=== PATIENT | female | born 1950 | race Caucasian/White ===

== ENCOUNTER 2023-08-05 12:58 | Inpatient (IN) | payer MEDICARE, SELFPAY ==
[2023-08-05] VITALS (10 sets, daily range): BP systolic 116–154; BP diastolic 59–78; BMI 20.5; BMI 20.8
[2023-08-05 09:28] LABS: % Basophils 0.4 % (0-2); % Eosinophils 0.8 % (0-6); % Immature Granulocytes 0.3 % (0-0.5); % Monocytes 9.7 % (1.7-9.3); % Neutrophils 75.8 % (42.2-75.2); Absolute Eosinophils 0.1 10^3/uL (0-0.7); Absolute Lymphocytes 1.4 10^3/uL (1.2-3.4); Absolute Neutrophils 7.9 10^3/uL (1.4-6.5); Hematocrit 37.6 % (37.0-47.0); Hemoglobin 12.9 g/dL (12.0-16.0); Mean Corp Hgb Conc. 34.3 g/dL (33.0-37.0); Mean Corpuscular Hgb 30.5 pg (27.0-31.0); Mean Corpuscular Volume 88.9 fL (81.0-99.0); Mean Platelet Volume 8.8 fL (7.4-10.4); Nucleated Red Blood Cells % 0 %; Platelet Count 184 10^3/uL (130-400); Red Blood Cell Count 4.23 10^6/uL (4.20-5.40); Red Cell Dist. Width 12.7 % (11.5-14.5); White Blood Cell Count 10.5 10^3/uL (4.8-10.8)
--- NOTE | 2023-08-05 09:29 | ED.GENMED ---
History of Present Illness
General
Chief Complaint: Rectal Bleeding
Source: patient
Exam Limitations: none
Time Seen by Provider: 08/05/23 09:01
Travel History
Have you had any contact with someone who has COVID-19?: No
Do you have any symptoms of coronavirus? Fever > 100 degrees, chills, cough, shortness of breath, sore throat, loss of taste or smell, muscle aches, or headache?: No
History of Present Illness
History of Present Illness:
73-year-old female on Coumadin for history of atrial fibrillation has pacer and bioprosthetic valve replacement presents complaining of red bloody stool since yesterday. She has had multiple episodes of this. She denies abdominal pain chest pain
or shortness of breath. She had a small clot this morning when she urinated. She was not sure where that came from however. No urinary symptoms. She states she was straining to have a bowel movement yesterday.
Past History
Past History
ED Past Medical History: Arrthythmia (Atrial fibrillation), CHF, Valvular disease (Mitral valve regurgitation) and Other (Stress incontinence)
ED Past Surgical History: Cardiac (Ablation A. fib), Gynecological (Ovarian surgery for benign tumor removal, LEEP), Tonsilectomy and Other (Partial thyroidectomy, left side lumpectomy)
Phy Exam
Physical Exam
Physical Exam:
General: Well-appearing female no acute respiratory distress
HEENT: Normocephalic atraumatic
Heart: Regular rate and rhythm no murmurs
Lungs: Clear to auscultation bilaterally no wheeze
Abdomen is soft nontender nondistended no guarding rebound normal bowel sound
Rectal exam: No obvious external hemorrhoids. There may be a subtle fissure on the patient's left side but not actively bleeding. Internal exam shows red heme positive stool
Extremities: No cyanosis or edema
Course
Orders/Labs/Results
Orders:
Orders
08/05/23 09:17
Type+Screen Urgent
Complete Blood Count/With Diff Urgent
Comprehensive Metabolic Panel Urgent
PT/INR [Prothrombin Time] Urgent
Abnormal Lab Results
08/05/23
09:17
Absolute Neuts (auto) 7.9 H 10^3/uL
(1.4-6.5)
Absolute Monos (auto) 1.0 H 10^3/uL
(0.1-0.6)
Neutrophils % 75.8 H %
(42.2-75.2)
Lymphocytes % 13.0 L %
(20.5-51.1)
Monocytes % 9.7 H %
(1.7-9.3)
PT 26.2 H Sec
(11.4-14.6)
Sodium 129 L mmol/L
(135-145)
Chloride 96 L mmol/L
(98-107)
Creatinine 0.5 L mg/dL
(0.6-1.0)
Total Bilirubin 1.5 H mg/dl
(0.2-1.3)
08/05/23 09:17
08/05/23 09:17
Vital Signs
Initial and Last Documented VS:
Initial Vital Signs
Temp Pulse Resp BP Pulse Ox
98.7 F 67 18 147/74 98
08/05/23 08:11 08/05/23 08:11 08/05/23 08:11 08/05/23 08:11 08/05/23 08:11
Last Documented Vital Signs
Temp Pulse Resp BP Pulse Ox
98.7 F 67 18 128/68 97
08/05/23 08:11 08/05/23 08:11 08/05/23 08:11 08/05/23 09:04 08/05/23 09:15
MDM/Problems Addressed
Differential Diagnosis Includes:
Rectal bleeding. Question hemorrhoidal versus fissure versus diverticular. Vital signs are stable. Do not suspect rapid upper GI bleed. Will check labs and INR.
*Critical Care Note
Total Time (30-74mins, 75-104mins- exclusive of procedures): Not Applicable
Update Note
Update Note:
INR 2.4. Vital stable hemoglobin stable. Recent colonoscopy did show diverticulum. No hemorrhoids on exam. Question possible diverticular bleed. Will keep in hospital for GI bleeding on Coumadin
ED Attending Note
-
Portions of this chart may have been created with voice recognition software.� Occasional wrong word or��sound alike� substitutions may have occurred due to the inherent limitations of voice recognition software.
Discharge Plan
Departure
Patient Disposition: Admit
Date of Disposition: 08/05/23
Time of Disposition: 11:59
Admit to: Telemetry
Presentation/result/management discussed w/ accepting MD/DO: Hospitalist
Discharge Problem:
Acute GI bleeding
Prescriptions:
No Action
losartan 50 mg Tablet
50 mg PO DAILY@1400
sennosides-docusate sodium [Senna Plus] 8.6-50 mg Tablet
1 tab-cap PO DAILYPRN PRN (Reason: constipation)
warfarin 2.5 mg Tablet
5 mg PO SUTUTHSA@2200
Patient Comments:
08/05/2023, took half of normal dose last night because of bleeding.
warfarin 2.5 mg Tablet
2.5 mg PO MOWEFR@2200
amlodipine 5 mg Tablet
5 mg PO DAILY
hydrochlorothiazide 12.5 mg Capsule
12.5 mg PO DAILY
atenolol 50 mg Tablet
50 mg PO HS
cyclosporine 0.05 % Dropperette
1 drp BOTH EYES BID
omega 4-deo-ord-fish oil [Fish Oil] 1,200 (144-216) mg Capsule
1 cap PO NOON
Patient Comments:
08/05/2023, [employer] brand.
Prolia 60 mg/mL Syringe
60 mg SC [id number]
Centrum Silver Women 8 mg iron-400 mcg-50 mcg Tablet
1 tab PO DAILY
Hair, Skin and Nails (biotin) 10,000 mcg Tablet,Chewable
10,000 mcg PO BID@1200,1700
Patient Comments:
08/05/2023, [employer] brand.
Calcium 600 + D(3)
1 tab PO DAILY
cholecalciferol (vitamin D3) 25 mcg (1,000 unit) Tablet
25 mcg PO NOON
Referrals:
Amirah Bailey MD [Family Provider] -
Interventions
Interventions:
*Risk Screen - Suicide Last Done: 08/05/23 08:17
*General Assessment Last Done: 08/05/23 08:17
*Neglect/Abuse Screening Last Done: 08/05/23 08:17
ED- Fall Risk Assessment Last Done: 08/05/23 08:59
*ED COVID-19 Vaccine History Last Done: 08/05/23 08:59
NU-Benzcr-Phmitvsgyl Assessment Last Done: 08/05/23 08:59
ED- Cardiac Assessment Last Done: 08/05/23 08:59
ED- Pulmonary Assessment Last Done: 08/05/23 08:59
Discharge Date and Time
Print Language: ARMENIAN
[2023-08-05 09:38] LABS: INR 2.41; PT 26.2 Sec (11.4-14.6)
[2023-08-05 09:51] LABS: ALT (SGPT) 24 U/L (0-35); AST (SGOT) 29 U/L (14-36); Alkaline Phosphatase 63 U/L (38-126); Blood Urea Nitrogen 14 mg/dl (7-17); Calcium 8.9 mg/dl (8.4-10.2); Carbon Dioxide 30 mmol/L (22-30); Chloride 96 mmol/L (98-107); Estimated Creatinine Clearance 63 ml/min; Glucose 92 mg/dl (70-99); Potassium 3.7 mmol/L (3.5-5.1); Sodium 129 mmol/L (135-145); Total Bilirubin 1.5 mg/dl (0.2-1.3); Total Protein 6.4 g/dl (6.3-8.2); eGFR > 60.00
--- NOTE | 2023-08-05 12:14 | HPS.HSE ---
Addendum entered and electronically signed by Osito Terry MD 08/05/23 16:16:
seen and examined by me independently in collaboration with the nurse practitioner Milo.
Past medical history/social history/medication/allergies reviewed.
Lab data and imaging data reviewed.
Patient presents with painless rectal bleeding since yesterday. She is hemodynamically stable H&H stable. Abdomen benign. Had a colonoscopy a year ago with showed diverticulosis. She is currently on Coumadin for cardiac indications/A-fib.
Due to bleeding on anticoagulation patient will be admitted to hospital. Hold Coumadin. Start on a clear liquid diet. Follow H&H. Consult GI.
History of A-fib with pacemaker in place. A paced rhythm noted. No history of stroke before. Patient has History of bioprosthetic mitral valve. MVR rectal bleeding which is bright red indicating acute bleed will hold Coumadin and follow INR
closely. Would not reverse; INR is 2.4 now. Restart anticoagulations once okay from GI standpoint.
Original Note:
Family Physician
-
Family Physician: Amirah Bailey
Chief Complaint
-
rectal bleeding
History of Present Illness
73-year-old female on Coumadin for history of atrial fibrillation has pacer and bioprosthetic valve replacement,htn, hld,CHF presents complaining of red bloody stool since yesterday. She has had multiple episodes of this yesterday. she moves her
bowel every morning after tea. yesterday, she did not move her bowl in am. later she started having multiple episodes of bright red blood. She denies abdominal pain. stated nauseous and poor appetite yesterday. denied chest pain or shortness of
breath. she complained of chills. denied fever, BALDERAS, dizzy or syncopal episode. denied dysuria or hematuria. She had a small clot this morning when she urinated. She was not sure where that came from however. denied dysuria, urgency or frequency.
heme positive stool. hgb stable at 12. admitting for further management.
Medical History
Past Medical History
Past Medical History: Reports Other
Additional Past Medical History:
paroxysmal atrial fib
valvular disease
CHF
HTN
HLD
Past Surgical History: Reports Other
Additional Past Surgical History:
tonsillectomy
valve replacement
cardiac ablation
ovarian tumor removed
thyroidectomy
left lump removed
MAZE procedure
Social History
Tobacco: Non-smoker
Alcohol: None
Drug: None
Family History
Family History: Not pertinent
Allergies / Home Medications
Allergies reflects when Allergies were last updated in [employer].
Home Medications with original date entered in [employer]
Allergy/Medication List:
Allergies
Allergy/AdvReac Type Severity Reaction Status Date / Time
No Known Allergies Allergy Verified 08/05/23 08:11
Home Medications
Calcium 600 + D(3) 1 tab PO DAILY Supplement 08/05/23
amlodipine 5 mg tablet 5 mg PO DAILY Blood Pressure 08/05/23
atenolol 50 mg tablet 50 mg PO HS Blood Pressure 08/05/23
biotin 10,000 mcg chewable tablet (Hair, Skin and Nails (biotin)) 10,000 mcg PO BID@1200,1700 Supplement 08/05/23
cholecalciferol (vitamin D3) 25 mcg (1,000 unit) tablet 25 mcg PO NOON Supplement 08/05/23
cyclosporine 0.05 % eye drops in a dropperette 1 drp BOTH EYES BID Eye Condition 08/05/23
denosumab 60 mg/mL subcutaneous syringe (Prolia) 60 mg SC [id number] BONE HEALTH 08/05/23
hydrochlorothiazide 12.5 mg capsule 12.5 mg PO DAILY Blood Pressure 08/05/23
losartan 50 mg tablet 50 mg PO DAILY@1400 Blood Pressure 08/05/23
fcmwuugn-ugsq-iigc 8 mg-folic 400 mcg-K 50 mcg-lutein 300 mcg tablet (Centrum Silver Women) 1 tab PO DAILY Supplement 08/05/23
omega 1-oyp-whg-fish oil 1,200 mg (144 mg-216 mg) capsule (Fish Oil) 1 cap PO NOON Supplement 08/05/23
sennosides 8.6 mg-docusate sodium 50 mg tablet (Senna Plus) 1 tab-cap PO DAILYPRN PRN constipation 08/05/23
warfarin 2.5 mg tablet 2.5 mg PO MOWEFR@2200 Supplement 08/05/23
warfarin 2.5 mg tablet 5 mg PO SUTUTHSA@2200 Blood Clot Prevention/Tx 08/05/23
Review of Systems
-
Constitutional: Reports No Symptoms
EENT: Reports No Symptoms
Respiratory: Reports No Symptoms
Cardiac: Reports No Symptoms
Abdomen/GI: Reports Bloody Stools
: Reports No Symptoms
Musculoskeletal: Reports No Symptoms
Skin: Reports No Symptoms
Neurological: Reports No Symptoms
Endocrine: Reports No Symptoms
Hematologic/Lymphatic: Reports No Symptoms
Psych: Reports No Symptoms
Physical Exam
Vital Signs
Vital Signs
Temp Pulse Resp BP Pulse Ox
98.7 F 67 18 132/65 95
08/05/23 08:11 08/05/23 08:11 08/05/23 08:11 08/05/23 12:00 08/05/23 12:00
Physical Exam
General: Well Developed, Well Nourished and No Apparent Distress
HEENT: NormoCephalic, Moist mucous membranes and Atraumatic
Respiratory: Clear
Cardiac: S1/S2 and Regular Rhythm; No Murmur or Rub
GI: Soft, Non Tender, Non Distended and Normal Bowel Sounds; No Organomegaly
Rectal: Deferred by Provider
Musculoskeletal: No Clubbing, No Cyanosis and No Edema
Skin: No Rash
Neuro: AO x 3 and Nonfocal/grossly intact
Psych: Calm
Laboratory Results
-
08/05/23 09:17
08/05/23 09:17
Laboratory Results
PT 26.2 Sec (11.4-14.6) H 08/05/23 09:17
INR 2.41 08/05/23 09:17
Total Bilirubin 1.5 mg/dl (0.2-1.3) H 08/05/23 09:17
AST 29 U/L (14-36) 08/05/23 09:17
ALT 24 U/L (0-35) 08/05/23 09:17
Alkaline Phosphatase 63 U/L (38-126) 08/05/23 09:17
Data Reviewed
-
Lab Data: Labs Reviewed by me
Impression/Plan
-
#rectal bleeding
-heme positive stool
-hgb stable at 12.9
-trend hemoglobin
-clear liquid diet
-GI consult
-colonoscopy (08/09/2022) with Diverticulosis in the sigmoid colon, in the descending colon, in the ascending colon and in the cecum.
#acute hyponatremia likley from HCTZ
-na 129
-will obtain UA, urine sodium, osmolality
-obtain serum osmolality
-monitor BMP
-hold hctz
#essential htn
-BP stable
-Norvasc continued
-losartan continued
#hxt of paroxysmal atrial fib.
-obtain EKG
-atenolol continued
-hold Coumadin
-INR 2.41
-daily INR
#DVT prophylaxis
-scd
#CODE status
-full code
--- NOTE | 2023-08-05 13:05 | CON.GI ---
Addendum entered and electronically signed by Carolina Emmanuel DO 08/05/23 14:59:
I saw and examined the patient.
The TURKISH RUBBER or PA's note was reviewed and I agree with the note.
Comment: Tracey Disla is a 73-year-old female with past medical history of A-fib, bioprosthetic mitral valve on warfarin, CHF, stress incontinence, hypertension, hyperlipidemia who presents with small volume hematochezia in the setting of
anticoagulation and chronic constipation/straining. Patient currently on warfarin with last dose yesterday, INR 2.4. Her hemoglobin is stable at 12.9, BUN 14. She has a recent colonoscopy, last August 2022 with evidence of pandiverticulosis. Rectal
exam with bright red blood. Likely hemorrhoidal vs. stercoral ulcer/procititis vs. AVM vs. diverticular. Agree with clear liquids, CTA if large-volume hematochezia. If stable overnight, will advance diet in AM. No plans for endoscopic intervention
at this time.
I
Original Note:
Consultation
-
Date/Time Consultation Requested: 08/05/23 1228
Date/Time Consultation Performed: 08/05/23 1250
Requesting Provider: LINDA Aaron
Performing Provider: /LINDA Colvin
Reason for Consultation: rectal bleeding
Medical History
Chief Complaint / HPI
Chief Complaint: rectal bleeding
History of Present Illness:
73-year-old female with past medical history of A-fib, bioprosthetic mitral valve on warfarin, CHF, stress incontinence, hypertension, hyperlipidemia presents to the emergency room with 1 day history of bright red blood per rectum. The patient
states that she was constipated and had hard pellet-like stools with difficulty having a bowel movement yesterday. The patient states that she was straining to have a bowel movement and needed to take senna plus in order to have a bowel movement.
She states after straining she noticed she had bright red blood per rectum coating the stool, in the water and upon wiping. She states that this occurred approximately 4-5 times throughout the day. Upon waking this morning and having to urinate
she did notice there was a small dime sized clot of blood within the toilet bowl. This prompted her to come to the emergency room. The patient does take warfarin for her cardiac issues and states that her goal is between 2.5 and 3.5 INR. She
states that she felt 'chilled' and had some mild nausea yesterday other than that she denies any fevers, vomiting, melena, hematochezia, dysphagia or dyne aphasia. No early satiety or unintentional weight loss. She only uses Tylenol for
discomfort. She does not use any aspirin or NSAIDs. Rectal exam by ER shows red heme positive stool. Patient has not had any further signs of bleeding since arrival. Her last colonoscopy was 08/09/[address] Garcia that showed scattered small
mouth diverticula in sigmoid colon, descending colon, ascending colon and cecum. Patient's WBC is 10.5, hemoglobin 12.9, hematocrit 37.6, platelet count 184, PT 26.2, INR 2.41, sodium 129, potassium 3.7, chloride 96, CO2 to 30, BUN 14, creatinine
0.5, glucose 92, total bilirubin 1.5 (this has been elevated in the past 1.4 in 2020), AST 29, ALT 24, alk phos 63.
Past Medical History
Past Medical History: Arrhythmias (A-fib), CHF, HTN, Hypercholesterolemia, Valvular Disease (Mitral valve regurgitation) and Other (Stress incontinence)
Past Surgical History: Other (Bioprosthetic mitral valve, maze, cardiac ablation, ovarian tumor removed, thyroidectomy, left-sided lumpectomy)
Social History
Tobacco: Non-Smoker
Alcohol: None
Drug: None
Family History
Family History: Other (No family history gastrointestinal malignancy or IBD)
Allergies / Home Medications
Allergy/AdvReac Type Severity Reaction Status Date / Time
No Known Allergies Allergy Verified 08/05/23 08:11
�Medication �Instructions �Recorded
Calcium 600 + D(3) 1 tab PO DAILY Supplement 08/05/23
amlodipine 5 mg tablet 5 mg PO DAILY Blood Pressure 08/05/23
atenolol 50 mg tablet 50 mg PO HS Blood Pressure 08/05/23
biotin 10,000 mcg chewable tablet 10,000 mcg PO BID@1200,1700 08/05/23
(Hair, Skin and Nails (biotin)) Supplement
cholecalciferol (vitamin D3) 25 25 mcg PO NOON Supplement 08/05/23
mcg (1,000 unit) tablet
cyclosporine 0.05 % eye drops in a 1 drp BOTH EYES BID Eye Condition 08/05/23
dropperette
denosumab 60 mg/mL subcutaneous 60 mg SC [id number] B[facility] HEALTH 08/05/23
syringe (Prolia)
hydrochlorothiazide 12.5 mg capsule 12.5 mg PO DAILY Blood Pressure 08/05/23
losartan 50 mg tablet 50 mg PO DAILY@1400 Blood Pressure 08/05/23
gewzbfxh-bjva-jeci 8 mg-folic 400 1 tab PO DAILY Supplement 08/05/23
mcg-K 50 mcg-lutein 300 mcg tablet
(Centrum Silver Women)
omega 5-osk-fmo-fish oil 1,200 mg 1 cap PO NOON Supplement 08/05/23
(144 mg-216 mg) capsule (Fish Oil)
sennosides 8.6 mg-docusate sodium 1 tab-cap PO DAILYPRN PRN 08/05/23
50 mg tablet (Senna Plus) constipation
warfarin 2.5 mg tablet 2.5 mg PO MOWEFR@2200 Supplement 08/05/23
warfarin 2.5 mg tablet 5 mg PO SUTUTHSA@2200 Blood Clot 08/05/23
Prevention/Tx
Review of Systems
-
All other systems: A 12 pt ROS was Negative except as stated above in HPI
Vital Signs
Temp Pulse Resp BP Pulse Ox
98.7 F 67 18 132/65 95
08/05/23 08:11 08/05/23 08:11 08/05/23 08:11 08/05/23 12:00 08/05/23 12:00
Physical Exam
Exam
General: No Apparent Distress
HEENT: Normocephalic
Respiratory: Clear
Cardiac: Regular Rhythm
GI: Soft, Non Tender, Non Distended and Normal Bowel Sounds
Rectal: Hem Positive (Red heme positive stool per ER)
Musculoskeletal: No Edema
Skin: Warm and Dry
Neuro: AO x 3
Psych: Calm
Results
WBC 10.5 10^3/uL (4.8-10.8) 08/05/23 09:17
Hgb 12.9 g/dL (12.0-16.0) 08/05/23 09:17
Hct 37.6 % (37.0-47.0) 08/05/23 09:17
MCV 88.9 fL (81.0-99.0) 08/05/23 09:17
Plt Count 184 10^3/uL (130-400) 08/05/23 09:17
Absolute Neuts (auto) 7.9 10^3/uL (1.4-6.5) H 08/05/23 09:17
PT 26.2 Sec (11.4-14.6) H 08/05/23 09:17
INR 2.41 08/05/23 09:17
Sodium 129 mmol/L (135-145) L 08/05/23 09:17
Potassium 3.7 mmol/L (3.5-5.1) 08/05/23 09:17
Chloride 96 mmol/L (98-107) L 08/05/23 09:17
Carbon Dioxide 30 mmol/L (22-30) 08/05/23 09:17
BUN 14 mg/dl (7-17) 08/05/23 09:17
Creatinine 0.5 mg/dL (0.6-1.0) L 08/05/23 09:17
Calcium 8.9 mg/dl (8.4-10.2) 08/05/23 09:17
Total Bilirubin 1.5 mg/dl (0.2-1.3) H 08/05/23 09:17
AST 29 U/L (14-36) 08/05/23 09:17
ALT 24 U/L (0-35) 08/05/23 09:17
Alkaline Phosphatase 63 U/L (38-126) 08/05/23 09:17
Diagnostic Image Results:
None this admission
Prior GI Procedures:
EGD: Never
Colonoscopy: 08/09/2022 (Garcia): Diverticulosis in the sigmoid colon, descending colon, ascending colon and in the cecum. No specimens collected. No repeat colonoscopy due to age and the absence of colon polyps.
Assessment / Plan
-
73-year-old female with past medical history of A-fib, bioprosthetic mitral valve on warfarin, CHF, stress incontinence, hypertension, hyperlipidemia presents to the emergency room with 1 day history of bright red blood per rectum. The patient
states that she was constipated and had hard pellet-like stools with difficulty having a bowel movement yesterday. The patient states that she was straining to have a bowel movement and needed to take senna plus in order to have a bowel movement.
She states after straining she noticed she had bright red blood per rectum coating the stool, in the water and upon wiping. Asked to evaluate for the same. Patient on warfarin for above cardiac conditions. Last dose was yesterday. Current INR is
2.41, hemoglobin 12.9, vital signs stable. No signs of bleeding since arrival. Last colonoscopy 08/09/2022 with diverticulosis only.
Impression:
-Rectal bleeding in the setting of straining/constipation and anticoagulation, possible diverticular as well.
-Chronic anticoagulation, on warfarin last dose 08/04/2023. Current INR 2.41
Plan:
-Okay for clear liquids, no reds
-Trend hemoglobin
-Would only get CTA Abd/Pelvis with active brisk bleeding
-Further recommendations to be forthcoming
-
-
Thank you for consultation and allowing me to participate in the patient's care. Please call the construction ironworker helper GI physician during the after hours with any questions or concerns.
[2023-08-05 14:46] LABS: Osmolality Serum 276 mOsm/kg (275-300)
[2023-08-05] MEDS: COZAAR 50 MG PO (15:11)
[2023-08-05 17:17] LABS: Hematocrit 39.3 % (37.0-47.0); Hemoglobin 13.7 g/dL (12.0-16.0)
[2023-08-05 19:31] LABS: Urine Albumin Negative (Neg - Trace); Urine Bilirubin Negative (Negative); Urine Character Clear (Clear); Urine Color Yellow; Urine Glucose Negative (Negative); Urine Ketone 1+ (Negative); Urine Leukocyte Negative (Negative); Urine Nitrite Negative (Negative); Urine Occult Blood Negative (Negative); Urine Urobilinogen Negative (Neg - 1+)
[2023-08-05 19:47] LABS: Osmolality Urine 281 mOsm/kg (300-900)
[2023-08-05 19:53] LABS: Urine Sodium 76 mmol/L (30-90)
[2023-08-05] MEDS: TENORMIN 50 MG PO (20:52)
[2023-08-05] MEDS: NSS (PRESERVATIVE FREE) 10 ML IV (20:52)
[2023-08-05] MEDS: PROTONIX IV 40 MG IV (20:52)
[2023-08-06 01:35] LABS: Hematocrit 33.4 % (37.0-47.0)
[2023-08-06 07:00] VITALS: BP 125/66
[2023-08-06 07:44] LABS: Hematocrit 36.4 % (37.0-47.0); Hemoglobin 12.7 g/dL (12.0-16.0); Mean Corp Hgb Conc. 34.9 g/dL (33.0-37.0); Mean Corpuscular Hgb 30.1 pg (27.0-31.0); Mean Corpuscular Volume 86.3 fL (81.0-99.0); Mean Platelet Volume 9.2 fL (7.4-10.4); Platelet Count 191 10^3/uL (130-400); Red Blood Cell Count 4.22 10^6/uL (4.20-5.40); Red Cell Dist. Width 12.5 % (11.5-14.5); White Blood Cell Count 7.6 10^3/uL (4.8-10.8)
[2023-08-06 07:54] LABS: PT 24.3 Sec (11.4-14.6)
[2023-08-06 08:13] LABS: Blood Urea Nitrogen 9 mg/dl (7-17); Calcium 8.5 mg/dl (8.4-10.2); Carbon Dioxide 32 mmol/L (22-30); Chloride 94 mmol/L (98-107); Estimated Creatinine Clearance 61 ml/min; Glucose 93 mg/dl (70-99); Sodium 130 mmol/L (135-145); eGFR > 60.00
[2023-08-06] MEDS: NORVASC 5 MG PO (09:35)
[2023-08-06] MEDS: PROTONIX IV 40 MG IV (09:35)
[2023-08-06] MEDS: NSS (PRESERVATIVE FREE) 10 ML IV (09:36)
[2023-08-06 11:00] VITALS: BP 143/67
--- NOTE | 2023-08-06 11:23 | CM ---
Reviewed chart, met with patient to obtain information for assessment. Patient stated that she lives with her brother in a two story home with two steps to enter.
Patient described herself as independent with her ADLs, personal care, dressing and bathing. She ambulates without device.
She can cook, clean, do laundry and all data migration lead. She drives and can get to her own appointments and do her own shopping.
Patient has been to SNF in the past at [facility] but she relayed that she signed herself out.
Patient has had VN services in the past through [facility].
Patient has a prescription plan and uses [facility] pharmacy in [place].
Her PCP is, Dr. Amirah Bailey.
Patient stated that she is very hopeful to be able to return home today.
Plan: Case management will continue to follow and assist with discharge planning. Patient would like to return home when medically cleared for discharge.
--- NOTE | 2023-08-06 11:51 | W.DS.TRANS ---
DC Summary - Linux System Engineer
-
Discharge Instructions:
Sleep Apnea Risk Low
Discharge Diagnosis/Procedures Small amount hematochezia -hemorrhoidal vs.
stercoral ulcer/procititis vs. AVM vs.
diverticular; Resolved spontaneously
Diet Regular,Restrict fluids to 48 oz
Blood Work BMP starting of next week.
Specialty Instructions Weigh Daily
Instructions:
Stand-Alone Forms:
Changes to Home Medications: Yes
Discharge Medications:
DC Medications w/original date entered in [employer]
Calcium 600 + D(3) 1 tab PO DAILY Supplement 08/05/23
amlodipine 5 mg tablet 5 mg PO DAILY Blood Pressure 08/05/23
atenolol 50 mg tablet 50 mg PO HS Blood Pressure 08/05/23
biotin 10,000 mcg chewable tablet (Hair, Skin and Nails (biotin)) 10,000 mcg PO BID@1200,1700 Supplement 08/05/23
cholecalciferol (vitamin D3) 25 mcg (1,000 unit) tablet 25 mcg PO NOON Supplement 08/05/23
cyclosporine 0.05 % eye drops in a dropperette 1 drp BOTH EYES BID Eye Condition 08/05/23
denosumab 60 mg/mL subcutaneous syringe (Prolia) 60 mg SC [id number] BONE HEALTH 08/05/23
hydrochlorothiazide 12.5 mg capsule 12.5 mg PO DAILY Blood Pressure 08/05/23
losartan 50 mg tablet 50 mg PO DAILY@1400 Blood Pressure 08/05/23
oolpotgv-jmmw-lygj 8 mg-folic 400 mcg-K 50 mcg-lutein 300 mcg tablet (Centrum Silver Women) 1 tab PO DAILY Supplement 08/05/23
omega 7-not-dqd-fish oil 1,200 mg (144 mg-216 mg) capsule (Fish Oil) 1 cap PO NOON Supplement 08/05/23
sennosides 8.6 mg-docusate sodium 50 mg tablet (Senna Plus) 1 tab-cap PO DAILYPRN PRN constipation 08/05/23
warfarin 2.5 mg tablet 2.5 mg PO MOWEFR@2200 Supplement 08/05/23
warfarin 2.5 mg tablet 5 mg PO LE@2199 Blood Clot Prevention/Tx 08/05/23
Home Medication Changes
Hold HCTZ until seen by PCP
Pending Results: No
[2023-08-06] MEDS: COZAAR 50 MG PO (14:08)
--- NOTE | 2023-08-06 14:41 | W.PN.HOSP.TC ---
Today's Communication/Plan
-
advance diet. DC planning
Assessment / Plan
Assessment / Plan
#Small amount of rectal bleeding - resolved. No recurrence.
-hgb stable ; Hemodynamically stable.
-colonoscopy (08/09/2022) with Diverticulosis in the sigmoid colon, in the descending colon, in the ascending colon and in the cecum.
-Broad differential including hemorrhoids, strain from bowel movement, diverticulosis,and AVM
-advance diet with no further bleeding
-DC patient home if okay from GI standpoint
#acute hyponatremia likley from HCTZ
- na 129-improved to 130
- blood pressure mostly under goal. Advised patient to avoid hydrochlorothiazide and consider an alternative. She would see her primary care physician for further assessment
- hold hctz
#essential htn
-BP stable
-Norvasc continued
-losartan continued
#hxt of paroxysmal atrial fib.
-atenolol continued
-INR 2.2
- Resume today without further active bleeding
#DVT prophylaxis
-scd
#CODE status
-full code
DC home after seen by GI
Anticipated Discharge: Today
Subjective/Interval History
-
Date of Service: August 06, 2023
No further rectal bleeding. Denies any abdominal pain, nausea, and vomiting.
Objective Data
-
Labs:
Laboratory Results
08/06/23
07:18
WBC 7.6
Hgb 12.7
Hct 36.4 L
Plt Count 191
PT 24.3 H
INR 2.20
Sodium 130 L
Potassium 4.0
Chloride 94 L
Carbon Dioxide 32 H
BUN 9
Creatinine 0.5 L
Glucose 93
Calcium 8.5
Vital Signs:
Vital Signs
Temp Pulse Resp BP Pulse Ox
97.6 F 67 18 143/67 98
08/06/23 11:00 08/06/23 11:00 08/06/23 11:00 08/06/23 11:00 08/06/23 11:00
Review of Systems
-
Respiratory: Denies Trouble Breathing
Cardiac: Denies Chest Pain
Neuro: Denies Dizzy
Physical Exam
-
General: No Apparent Distress
HEENT: Moist Mucous Membranes
Respiratory: Clear to Auscultation
Cardiac: Regular Rhythm and S1/S2
GI: Soft and Nontender
Neuro: AO x 3
Data Reviewed
-
Labs: Labs Reviewed by me
[2023-08-06 15:00] VITALS: BP 129/67
== END 2023-08-06 15:53 | disposition home or self-care (01) | DRG 378 ==
LOC: 3 WEST ACU 12:58
PROVIDERS: Physician Assistant; Registered Nurse; ADMITTING PHYSICIAN Internal Medicine; EMERGENCY PHYSICIAN Emergency Medicine; FAMILY PHYSICIAN Internal Medicine; OTHER PHYSICIAN Internal Medicine
DX: K92.1 Melena (principal); E87.1 Hypo-osmolality and hyponatremia; K64.9 Unspecified hemorrhoids; I48.0 Paroxysmal atrial fibrillation; I50.9 Heart failure, unspecified; N39.3 Stress incontinence (female) (male); I34.0 Nonrheumatic mitral (valve) insufficiency; I11.0 Hypertensive heart disease with heart failure; K57.30 Diverticulosis of large intestine without perforation or abscess without bleeding; E78.00 Pure hypercholesterolemia, unspecified; E89.0 Postprocedural hypothyroidism; K59.09 Other constipation; Z79.01 Long term (current) use of anticoagulants; Z95.0 Presence of cardiac pacemaker; Z95.3 Presence of xenogenic heart valve
CPT/HCPCS: 80048; 80053; 81003; 83930; 83935; 84300; 85014; 85018; 85025; 85027; 85610; 86850; 86900; 86901; 93005; 99284

== ENCOUNTER 2024-05-30 13:25 | Inpatient (IN) | payer MEDICARE, SELFPAY ==
[2024-05-30] VITALS (7 sets, daily range): BP systolic 139–158; BP diastolic 65–78; BMI 21.7; BMI 20.2
[2024-05-30 10:34] LABS: % Basophils 0.3 % (0-2); % Eosinophils 0.8 % (0-6); % Immature Granulocytes 0.2 % (0-0.5); % Lymphocytes 14.5 % (20.5-51.1); % Monocytes 10.2 % (1.7-9.3); Absolute Eosinophils 0.1 10^3/uL (0-0.7); Absolute Lymphocytes 1.3 10^3/uL (1.2-3.4); Absolute Monocytes 0.9 10^3/uL (0.1-0.6); Absolute Neutrophils 6.6 10^3/uL (1.4-6.5); Hematocrit 39.4 % (37.0-47.0); Hemoglobin 12.9 g/dL (12.0-16.0); Mean Corp Hgb Conc. 32.7 g/dL (33.0-37.0); Mean Corpuscular Hgb 29.2 pg (27.0-31.0); Mean Corpuscular Volume 89.1 fL (81.0-99.0); Mean Platelet Volume 9.1 fL (7.4-10.4); Nucleated Red Blood Cells % 0 %; Platelet Count 189 10^3/uL (130-400); Red Blood Cell Count 4.42 10^6/uL (4.20-5.40); Red Cell Dist. Width 13.5 % (11.5-14.5); White Blood Cell Count 8.9 10^3/uL (4.8-10.8)
[2024-05-30 10:45] LABS: INR 2.27; PT 25.5 Sec (11.4-14.6)
[2024-05-30 10:46] LABS: APTT 51.7 Sec (23.4-35.0)
[2024-05-30 10:51] LABS: ALT (SGPT) 27 U/L (0-35); AST (SGOT) 34 U/L (14-36); Alkaline Phosphatase 72 U/L (38-126); Blood Urea Nitrogen 19 mg/dl (7-17); Calcium 9.4 mg/dl (8.4-10.2); Carbon Dioxide 31 mmol/L (22-30); Chloride 99 mmol/L (98-107); Glucose 125 mg/dl (70-99); Potassium 4.2 mmol/L (3.5-5.1); Sodium 137 mmol/L (135-145); Total Bilirubin 1.4 mg/dl (0.2-1.3); Total Protein 6.5 g/dl (6.3-8.2); eGFR > 60.00
--- NOTE | 2024-05-30 11:51 | EDRN ---
Dr. Browne in room w/ pt at this time.
--- NOTE | 2024-05-30 12:07 | ED.GENMED ---
History of Present Illness
General
Chief Complaint: Rectal Bleeding
Time Seen by Provider: 05/30/24 11:35
History of Present Illness
History of Present Illness:
Patient is a 74-year-old woman with history of A-fib on Coumadin presenting to the emergency department with rectal bleeding. Per chart review patient was admitted in August 2023 for rectal bleeding. She was observed with a normal hemoglobin. She
did have a colonoscopy completed in August 2022 which showed diverticulosis. She states for the past few days she is been having bright red blood per rectum mixed with her stool intermittently. No lightheadedness. No dizziness. No abdominal pain.
This does feel similar to what happened last year. No known hemorrhoids
Past History
Past History
ED Past Medical History: Arrthythmia (Atrial fibrillation), CHF, Valvular disease (Mitral valve regurgitation) and Other (Stress incontinence)
ED Past Surgical History: Cardiac (Ablation A. fib), Gynecological (Ovarian surgery for benign tumor removal, LEEP), Tonsilectomy and Other (Partial thyroidectomy, left side lumpectomy)
Phy Exam
Physical Exam
Physical Exam:
GENERAL: in no acute distress
HEENT: normocephalic, extraocular movements intact, moist oral mucosa
NECK: normal inspection
RESPIRATORY: no respiratory distress, clear to auscultation bilaterally
CARDIOVASCULAR: regular rate and rhythm
ABDOMEN/: soft, non-distended, non-tender to palpation, no rebound or guarding
Rectal exam chaperoned by nemesio ramirez -no obvious external hemorrhoids. No gross hematochezia. Hemoccult positive
EXTREMITIES: non-tender, no edema/swelling
NEUROLOGIC: awake and alert, moves all extremities
SKIN: warm
Course
Orders/Labs/Results
Orders:
Orders
05/30/24 10:24
Type And Crossmatch [Type+Screen] Urgent
CBC/With Diff [Complete Blood Count/With Diff] Urgent
Comprehensive Metabolic Panel Urgent
INR [Prothrombin Time] Urgent
PTT Urgent
Abnormal Lab Results
05/30/24
10:24
MCHC 32.7 L g/dL
(33.0-37.0)
Absolute Neuts (auto) 6.6 H 10^3/uL
(1.4-6.5)
Absolute Monos (auto) 0.9 H 10^3/uL
(0.1-0.6)
Lymphocytes % 14.5 L %
(20.5-51.1)
Monocytes % 10.2 H %
(1.7-9.3)
PT 25.5 H Sec
(11.4-14.6)
APTT 51.7 H Sec
(23.4-35.0)
Carbon Dioxide 31 H mmol/L
(22-30)
BUN 19 H mg/dl
(7-17)
Glucose 125 H mg/dl
(70-99)
Total Bilirubin 1.4 H mg/dl
(0.2-1.3)
05/30/24 10:24
05/30/24 10:24
Vital Signs
Initial and Last Documented VS:
Initial Vital Signs
Temp Pulse Resp BP Pulse Ox
97.9 F 67 16 143/71 97
05/30/24 09:56 05/30/24 09:56 05/30/24 09:56 05/30/24 09:56 05/30/24 09:56
Last Documented Vital Signs
Temp Pulse Resp BP Pulse Ox
97.9 F 74 16 139/69 98
05/30/24 09:56 05/30/24 11:32 05/30/24 11:32 05/30/24 11:32 05/30/24 11:32
MDM/Problems Addressed
Differential Diagnosis Includes:
74-year-old woman with with history of A-fib on Coumadin presenting to the emergency department with rectal bleeding for the past few days. Vitals unremarkable exam does show Hemoccult positive stool. Concern for lower GI bleed. She does state
that she had an ablation done in the beginning of April and they warned her about a fistula. Source could be hemorrhoid versus diverticular bleed. Her hemoglobin is stable. Her INR is normal. Given the bleeding on warfarin patient will need
admission for hemoglobin monitoring as well as possible colonoscopy. Discussed with hospitalist who accepted patient to their service.
*Critical Care Note
Total Time (30-74mins, 75-104mins- exclusive of procedures): Not Applicable
ED Attending Note
-
Portions of this chart may have been created with voice recognition software.� Occasional wrong word or��sound alike� substitutions may have occurred due to the inherent limitations of voice recognition software.
Discharge Plan
Departure
Patient Disposition: Admit
Date of Disposition: 05/30/24
Time of Disposition: 12:05
Presentation/result/management discussed w/ accepting MD/DO: Hospitalist
Discharge Problem:
GI bleed
Prescriptions:
No Action
losartan 50 mg Tablet
50 mg PO DAILY@1400
sennosides-docusate sodium [Senna Plus] 8.6-50 mg Tablet
1 tab-cap PO DAILYPRN PRN (Reason: constipation)
warfarin 2.5 mg Tablet
5 mg PO SUTUTHSA@2200
Patient Comments:
08/05/2023, took half of normal dose last night because of bleeding.
warfarin 2.5 mg Tablet
2.5 mg PO MOWEFR@2200
amlodipine 5 mg Tablet
5 mg PO DAILY
hydrochlorothiazide 12.5 mg Capsule
12.5 mg PO DAILY
atenolol 50 mg Tablet
50 mg PO HS
cyclosporine 0.05 % Dropperette
1 drp BOTH EYES BID
omega 9-xld-xss-fish oil [Fish Oil] 1,200 (144-216) mg Capsule
1 cap PO NOON
Patient Comments:
08/05/2023, [employer] brand.
Prolia 60 mg/mL Syringe
60 mg SC [id number]
Centrum Silver Women 8 mg iron-400 mcg-50 mcg Tablet
1 tab PO DAILY
Hair, Skin and Nails (biotin) 10,000 mcg Tablet,Chewable
10,000 mcg PO BID@1200,1700
Patient Comments:
08/05/2023, [employer] brand.
Calcium 600 + D(3)
1 tab PO DAILY
cholecalciferol (vitamin D3) 25 mcg (1,000 unit) Tablet
25 mcg PO NOON
Referrals:
Amirah Bailey MD [Family Provider] -
Interventions
Interventions:
*Risk Screen - Suicide Last Done: 05/30/24 09:56
*General Assessment Last Done: 05/30/24 11:23
*Neglect/Abuse Screening Last Done: 05/30/24 09:56
ED- Fall Risk Assessment Last Done: 05/30/24 11:23
*ED COVID-19 Vaccine History Last Done: 05/30/24 11:23
ZK-Gredcj-Cpzcurkeci Assessment Last Done: 05/30/24 11:23
ED- Cardiac Assessment Last Done: 05/30/24 11:23
ED- Pulmonary Assessment Last Done: 05/30/24 11:23
Discharge Date and Time
Print Language: UPPER SORBIAN
--- NOTE | 2024-05-30 13:05 | EDRN ---
Dr. Trevino in room w/pt at this time.
--- NOTE | 2024-05-30 13:19 | HPS.HSE ---
Family Physician
-
Family Physician: Amirah Bailey
Chief Complaint
-
rectal bleeding
History of Present Illness
74-year-old female past medical history of rectal bleeding, paroxysmal atrial fibrillation status post ablation on Coumadin, bioprosthetic mitral valve, CHF, hypertension, stress incontinence, hyperlipidemia presenting with rectal bleeding. She has
been having bright red blood for the past 2 to 3 days described as circles of pure blood sometimes mixed in with the stool. She had more bleeding 2 days ago but bleeding has become more scant at this point. She denies any rectal pain or abdominal
pain.
She thought that she was having a stomach bug 4 days ago which shows and had some loose stools but no diarrhea or vomiting.
Patient was admitted in August 2023 for rectal bleeding. She was observed with normal hemoglobin at that time. She had colonoscopy in August 2022 which showed diverticulosis.
Medical History
Past Medical History
Past Medical History: Reports Other (rectal bleeding, paroxysmal atrial fibrillation status post ablation on Coumadin, bioprosthetic mitral valve, CHF, hypertension, stress incontinence, hyperlipidemia)
Past Surgical History: Reports Other (Cardiac (Ablation A. fib), Gynecological (Ovarian surgery for benign tumor removal, LEEP), Tonsilectomy and Other (Partial thyroidectomy, left side lumpectomy))
Social History
Tobacco: Non-smoker
Alcohol: None
Drug: None
Family History
Family History: Not pertinent
Allergies / Home Medications
Allergies reflects when Allergies were last updated in [employer].
Home Medications with original date entered in [employer]
Allergy/Medication List:
Allergies
Allergy/AdvReac Type Severity Reaction Status Date / Time
No Known Allergies Allergy Verified 05/30/24 10:03
Home Medications
amlodipine 5 mg tablet 5 mg PO DAILY@1300 Blood Pressure 08/05/23
atenolol 50 mg tablet 50 mg PO HS Blood Pressure 08/05/23
biotin 10,000 mcg chewable tablet (Hair, Skin and Nails (biotin)) 10,000 mcg PO BID@1200,1700 Supplement 08/05/23
calcium carbonate (Calcium 600) 600 mg PO DAILY Supplement ##0 08/05/23
cholecalciferol (vitamin D3) 25 mcg (1,000 unit) tablet 25 mcg PO NOON Supplement 08/05/23
cyclosporine 0.05 % eye drops in a dropperette 1 drp BOTH EYES BID Eye Condition 08/05/23
denosumab 60 mg/mL subcutaneous syringe (Prolia) 60 mg SC [id number] BONE HEALTH 08/05/23
losartan 50 mg tablet 50 mg PO DAILY Blood Pressure 08/05/23
omega 4-jby-tfo-fish oil 1,200 mg (144 mg-216 mg) capsule (Fish Oil) 1 cap PO NOON Supplement 08/05/23
warfarin 2.5 mg tablet 2.5 mg PO FR@2100 Supplement 08/05/23
warfarin 2.5 mg tablet 3.75 mg PO SUMOTUWETHSA@2100 Blood Clot Prevention/Tx 08/05/23
amlodipine 2.5 mg tablet (Norvasc) 2.5 mg PO DAILYPRN PRN high blood pressure 05/30/24
ascorbic acid (vitamin C) 500 mg tablet (Vitamin C) 500 mg PO Q48H 05/30/24
atorvastatin 10 mg tablet (Lipitor) 10 mg PO HS 05/30/24
therapeutic multivitamin 1 tab PO DAILY 05/30/24
Review of Systems
-
History Source: Patient
A 12 point ROS was completed and negative except as noted: Yes
Constitutional: Reports No Symptoms
EENT: Reports No Symptoms
Respiratory: Reports No Symptoms
Cardiac: Reports No Symptoms
Abdomen/GI: Reports See HPI
: Reports No Symptoms
Musculoskeletal: Reports No Symptoms
Skin: Reports No Symptoms
Neurological: Reports No Symptoms
Endocrine: Reports No Symptoms
Hematologic/Lymphatic: Reports No Symptoms
Psych: Reports No Symptoms
Physical Exam
Vital Signs
Vital Signs
Temp Pulse Resp BP Pulse Ox
97.9 F 66 16 143/68 98
05/30/24 09:56 05/30/24 12:58 05/30/24 12:58 05/30/24 12:58 05/30/24 12:58
Physical Exam
General: Well Developed, Well Nourished and No Apparent Distress
HEENT: NormoCephalic, Moist mucous membranes and Atraumatic
Respiratory: Clear
Cardiac: S1/S2 and Regular Rhythm; No Murmur or Rub
GI: Soft, Non Tender, Non Distended and Normal Bowel Sounds; No Organomegaly
Rectal: Deferred by Provider
Musculoskeletal: No Clubbing, No Cyanosis and No Edema
Skin: No Rash
Neuro: Nonfocal/grossly intact
Laboratory Results
-
05/30/24 10:24
05/30/24 10:24
Laboratory Results
PT 25.5 Sec (11.4-14.6) H 05/30/24 10:24
INR 2.27 05/30/24 10:24
APTT 51.7 Sec (23.4-35.0) H 05/30/24 10:24
Total Bilirubin 1.4 mg/dl (0.2-1.3) H 05/30/24 10:24
AST 34 U/L (14-36) 05/30/24 10:24
ALT 27 U/L (0-35) 05/30/24 10:24
Alkaline Phosphatase 72 U/L (38-126) 05/30/24 10:24
Data Reviewed
-
Lab Data: Labs Reviewed by me
Old Records: Reviewed
Impression/Plan
-
IMPRESSION:
PLAN:
# Lower GI bleeding likely diverticular
# History of diverticulosis
-INR of 2.27, recheck daily
-Hold Coumadin
-Hemoglobin at 12.9
-Clear liquid diet
-Monitor hemoglobin
-Bleeding is mostly resolved, no indication for CT angio at this time
-Colonoscopy in August 2022 showed diverticulosis
-GI consulted
Paroxysmal atrial fibrillation
-Hold Coumadin
Bioprosthetic mitral valve
Chronic heart failure
Essential hypertension
-Continue amlodipine, atenolol, losartan
Stress incontinence
Hyperlipidemia
-Continue statin
Full code
DVT prophylaxis�SCDs
Clear liquid diet
--- NOTE | 2024-05-30 15:14 | EDRN ---
Received report from Glory SHELL; pt ambulated by [facility] to hold room 15. Report relayed to Hold nurse Bel.
--- NOTE | 2024-05-30 15:38 | CON.GI ---
Addendum entered and electronically signed by Verona Nunn MD 05/30/24 18:24:
I saw and examined the patient.
The CONCRETE POURER's note was reviewed and I agree with the note.
Comment: This is a 74-year-old female with past medical history as listed below including A-fib, bioprosthetic mitral valve, maze and rest as below and also recent cardiac ablation with prior history of lower GI bleed August 2023 presented with rectal
bleeding. She states that about 2 days ago she had a hard bowel movement and noticed some blood in the stool and had a few more episodes bowel movements with small blood clots and today she had a bowel movement with minimal amount of blood
presented to the emergency room. She is on warfarin and her INR on admission was 2.27. Hemoglobin stable at 12.9 she has not had any further episodes. She does have a hard stool sometimes and uses senna as needed for constipation. She did have a
colonoscopy in [address] Garcia that showed diverticulosis.
Assessment and plan rectal bleeding painless most likely related to hemorrhoids given that she was constipated few days ago with straining and hard stool and less likely diverticular bleed. Hemoglobin remained stable. She could have possible
stercoral ulcer but currently has no discomfort. I encouraged her to use MiraLAX every day or every other day she says that she already consumes a high-fiber diet she is currently using Senokot as needed. Warfarin is currently on hold her INR was
therapeutic today. If she has no further bleeding tomorrow then could likely resume warfarin. Continue to monitor hemoglobin. If she has brisk active bleeding then would get CTA
Original Note:
Consultation
-
Date/Time Consultation Requested: 05/30/24 1500
Date/Time Consultation Performed: 05/30/24 1515
Requesting Provider: Dr. Landa
Performing Provider: Dr. Nunn/LINDA Colvin
Reason for Consultation: rectal bleeding
Medical History
Chief Complaint / HPI
Chief Complaint: rectal bleeding
History of Present Illness:
74-year-old female with past medical history of A-fib, bioprosthetic mitral valve on warfarin, recent cardaic ablation, CHF, stress incontinence, hypertension, hyperlipidemia presents to the emergency room with initially a couple days ago with a
slight upset stomach followed by absence of bowel movements. Then she states that she had a difficulty passing a bowel movement. Followed by a hard bowel movement. She then had slight passage of some scant bright red blood. She then passed a
softer bowel movement with a couple small blood clots. She then had a normal bowel move without any episodes of bleeding. Then passed another bowel movement today with a couple other small clots. Patient has hx of using Senna on occasion for
constipation but has not needed recently. The patient denies any fevers, chills, nausea, vomiting, melena, dysphagia or odynophagia. No early satiety or unintentional weight loss. The patient had a similar episode in August 2023. She did not have any
active bleeding after this and had no issues. She tolerated clear liquid diet and went home without any further episodes of bleeding. The patient is on warfarin. Her last dose was yesterday. She does not use any aspirin or NSAIDs. Rectal exam
performed in ER showed no obvious external hemorrhoids. No gross hematochezia. Stool for Hemoccult was positive. She has not had any further signs of bleeding since arrival. Her last colonoscopy Her last colonoscopy was 08/09/[address] Garcia
that showed scattered small mouth diverticula in sigmoid colon, descending colon, ascending colon and cecum. WBC 8.9, hemoglobin 12.9, hematocrit 39.4, platelets 189 PT 25.5, INR 2.7, sodium 137, potassium 4.2, BUN 19, creatinine 0.6, glucose 125,
total bilirubin 1.4, AST 34, ALT 27, alk phos 72 (of note patient always has an elevated total bilirubin).
Past Medical History
Past Medical History: Arrhythmias (A-fib), CHF, HTN, Hypercholesterolemia, Valvular Disease (Mitral valve regurgitation) and Other (Stress incontinence)
Past Surgical History: Other (Bioprosthetic mitral valve, maze, cardiac ablation, ovarian tumor removed, thyroidectomy, left-sided lumpectomy)
Social History
Tobacco: Non-Smoker
Alcohol: None
Drug: None
Family History
Family History: Other (No family history gastrointestinal malignancy or IBD)
Allergies / Home Medications
Allergy/AdvReac Type Severity Reaction Status Date / Time
No Known Allergies Allergy Verified 05/30/24 10:03
�Medication �Instructions �Recorded
amlodipine 5 mg tablet 5 mg PO DAILY@1300 Blood Pressure 08/05/23
atenolol 50 mg tablet 50 mg PO HS Blood Pressure 08/05/23
biotin 10,000 mcg chewable tablet 10,000 mcg PO BID@1200,1700 08/05/23
(Hair, Skin and Nails (biotin)) Supplement
calcium carbonate (Calcium 600) 600 mg PO DAILY Supplement ##0 08/05/23
cholecalciferol (vitamin D3) 25 25 mcg PO NOON Supplement 08/05/23
mcg (1,000 unit) tablet
cyclosporine 0.05 % eye drops in a 1 drp BOTH EYES BID Eye Condition 08/05/23
dropperette
denosumab 60 mg/mL subcutaneous 60 mg SC [id number] BONE HEALTH 08/05/23
syringe (Prolia)
losartan 50 mg tablet 50 mg PO DAILY Blood Pressure 08/05/23
omega 5-ipb-ins-fish oil 1,200 mg 1 cap PO NOON Supplement 08/05/23
(144 mg-216 mg) capsule (Fish Oil)
warfarin 2.5 mg tablet 2.5 mg PO FR@2100 Supplement 08/05/23
warfarin 2.5 mg tablet 3.75 mg PO SUMOTUWETHSA@2100 Blood 08/05/23
Clot Prevention/Tx
amlodipine 2.5 mg tablet (Norvasc) 2.5 mg PO DAILYPRN PRN high blood 05/30/24
pressure
ascorbic acid (vitamin C) 500 mg 500 mg PO Q48H 05/30/24
tablet (Vitamin C)
atorvastatin 10 mg tablet (Lipitor) 10 mg PO HS 05/30/24
therapeutic multivitamin 1 tab PO DAILY 05/30/24
Review of Systems
-
All other systems: A 12 pt ROS was Negative except as stated above in HPI
Vital Signs
Temp Pulse Resp BP Pulse Ox
97.9 F 68 16 141/65 96
05/30/24 09:56 05/30/24 14:58 05/30/24 14:58 05/30/24 14:58 05/30/24 14:58
Physical Exam
Exam
General: No Apparent Distress
HEENT: Anicteric
Respiratory: Clear
Cardiac: Regular Rhythm
Rectal: Hem Positive
Musculoskeletal: No Edema
Skin: Warm
Psych: Calm
Results
WBC 8.9 10^3/uL (4.8-10.8) 05/30/24 10:24
Hgb 12.9 g/dL (12.0-16.0) 05/30/24 10:24
Hct 39.4 % (37.0-47.0) 05/30/24 10:24
MCV 89.1 fL (81.0-99.0) 05/30/24 10:24
Plt Count 189 10^3/uL (130-400) 05/30/24 10:24
Absolute Neuts (auto) 6.6 10^3/uL (1.4-6.5) H 05/30/24 10:24
PT 25.5 Sec (11.4-14.6) H 05/30/24 10:24
INR 2.27 05/30/24 10:24
APTT 51.7 Sec (23.4-35.0) H 05/30/24 10:24
Sodium 137 mmol/L (135-145) 05/30/24 10:24
Potassium 4.2 mmol/L (3.5-5.1) 05/30/24 10:24
Chloride 99 mmol/L (98-107) 05/30/24 10:24
Carbon Dioxide 31 mmol/L (22-30) H 05/30/24 10:24
BUN 19 mg/dl (7-17) H 05/30/24 10:24
Creatinine 0.6 mg/dL (0.6-1.0) 05/30/24 10:24
Calcium 9.4 mg/dl (8.4-10.2) 05/30/24 10:24
Total Bilirubin 1.4 mg/dl (0.2-1.3) H 05/30/24 10:24
AST 34 U/L (14-36) 05/30/24 10:24
ALT 27 U/L (0-35) 05/30/24 10:24
Alkaline Phosphatase 72 U/L (38-126) 05/30/24 10:24
Diagnostic Image Results:
None this admission
Prior GI Procedures:
EGD: Never
Colonoscopy: 08/09/2022 (Jose): Diverticulosis in the sigmoid colon, descending colon, ascending colon and in the cecum. No specimens collected. No repeat colonoscopy due to age and the absence of colon polyps.
Assessment / Plan
-
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
slight upset stomach followed by absence of bowel movements. Then she states that she had a difficulty passing a bowel movement. Followed by a hard bowel movement. She then had slight passage of some scant bright red blood. She then passed a
softer bowel movement with a couple small blood clots. Presented to the emergency room for further evaluation. Last dose of warfarin was yesterday. INR is 2.7, hemoglobin is stable at 12.9. No signs of bleeding since arrival. Only small clots
were noted. Rectal exam in ER without any hematochezia. Stool was positive for occult blood. Patient without any abdominal pain. Last colonoscopy in 08/2022 showing scattered small mouth diverticula in sigmoid colon, descending colon, ascending
colon and cecum. Patient takes her BP three times a day and denies any episodes of hypotension or significant abd pain.
Impression:
Rectal bleeding question secondary to diverticular versus stercoral versus less likely colitis
Chronic anticoagulation, on warfarin given history of bioprosthetic mitral valve and A-fib
Plan:
-Ok Poor clear liquid diet, no reds.
-Will give Ensure clear
-Warfarin has been placed on hold
-If patient with active signs of bleeding would get CTA abdomen pelvis
-Trend hemoglobin
-Can place patient on pantoprazole 40 mg daily as she had a slight upset stomach, mildly elevated BUN although doubt upper GI bleed.
-Further recommendations to be forthcoming.
-
-
Thank you for consultation and allowing me to participate in the patient's care. Please call the percussion instrument repairer GI physician during the after hours with any questions or concerns.
[2024-05-30] MEDS: PROTONIX 20 MG PO (17:16)
[2024-05-30] MEDS: NORVASC 5 MG PO (17:16)
--- NOTE | 2024-05-30 18:58 | PTCARENOTE ---
Report called to unit, pt to unit without issue
[2024-05-30] MEDS: RESTASIS 0.05% OPHTHALMIC EMULSION 1 DROPS BOTH EYES (20:33)
[2024-05-30 22:05] LABS: Hematocrit 38.1 % (37.0-47.0); Hemoglobin 12.8 g/dL (12.0-16.0); Mean Corp Hgb Conc. 33.6 g/dL (33.0-37.0); Mean Corpuscular Hgb 29.6 pg (27.0-31.0); Mean Platelet Volume 9.2 fL (7.4-10.4); Platelet Count 179 10^3/uL (130-400); Red Blood Cell Count 4.33 10^6/uL (4.20-5.40); Red Cell Dist. Width 13.4 % (11.5-14.5)
[2024-05-30] MEDS: LIPITOR 10 MG PO (23:28)
[2024-05-30] MEDS: TENORMIN 50 MG PO (23:29)
[2024-05-31 06:00] VITALS: BMI 20.1
--- NOTE | 2024-05-31 07:06 | W.PN.HOSP.TC ---
Today's Communication/Plan
-
Discharge today
Assessment / Plan
Assessment / Plan
Physical Exam
General: Well Developed, Well Nourished and No Apparent Distress
HEENT: Normocephalic, Moist mucous membranes and Atraumatic
Respiratory: Clear to Auscultation Bilaterally
Cardiac: S1/S2 and Regular Rhythm
GI: Soft, Non Tender, Non Distended and Normal Bowel Sounds
Musculoskeletal: No Cyanosis and No Edema
Skin: Warm. Dry.
Neuro: Nonfocal/grossly intact
Assessment/Plan
74-year-old female past medical history of rectal bleeding, paroxysmal atrial fibrillation status post ablation on Coumadin, bioprosthetic mitral valve, CHF, hypertension, stress incontinence, hyperlipidemia presented with rectal bleeding. She had
been having bright red blood for the 2 to 3 days prior to arrival, and she described as circles of pure blood sometimes mixed in with the stool. She had more bleeding 2 days prior but bleeding had become more scant at that point. She denied any
rectal pain or abdominal pain. She thought that she was having a stomach bug 4 days ago which shows and had some loose stools but no diarrhea or vomiting. Patient was admitted in August 2023 for rectal bleeding. She was observed with normal hemoglobin
at that time. She had colonoscopy in August 2022 which showed diverticulosis.
# Lower GI bleeding likely diverticular
# History of diverticulosis
# Rectal bleeding question secondary to diverticular versus stercoral versus less likely colitis
# Chronic anticoagulation, on warfarin given history of bioprosthetic mitral valve and A-fib
-Hgb stable at therapeutic INR, no further bleeding
-Advance to low residue diet
-Continue Coumadin with close monitoring of INR outpatient
-Monitor hemoglobin
-Bleeding is mostly resolved, no indication for CT angio at this time
-Colonoscopy in August 2022 showed diverticulosis
-GI consulted
Paroxysmal atrial fibrillation
-Continue Coumadin with close monitoring of INR outpatient
Bioprosthetic mitral valve
Chronic constipation
-MiraLAX daily and Senokot PRN
Dyspepsia Symptoms
-Continue Protonix for a month followed by PRN Pepcid
Chronic heart failure
Essential hypertension
-Continue amlodipine, atenolol, losartan
Stress incontinence
Hyperlipidemia
-Continue statin
Full code
DVT prophylaxis�SCDs
More than 30 minutes spent in discharge including
Final examination of the patient
Summarizing hospital stay
Instructions for continuing care to all relevant caregivers
Preparation of discharge records, prescriptions, and referral forms
Total time spent (in minutes): 38
Anticipated Discharge: Today
Subjective/Interval History
-
Date of Service: May 31, 2024
Patient was seen and examined. She denied any further rectal bleeding and stated that she wants to go home today.
Objective Data
-
Labs:
Laboratory Results
05/30/24 05/31/24
21:54 06:27
WBC 9.0 Pending
Hgb 12.8 Pending
Hct 38.1 Pending
Plt Count 179 Pending
PT Pending
INR Pending
Sodium Pending
Potassium Pending
Chloride Pending
Carbon Dioxide Pending
BUN Pending
Creatinine Pending
Glucose Pending
Calcium Pending
Total Bilirubin Pending
AST Pending
ALT Pending
Alkaline Phosphatase Pending
Vital Signs:
Vital Signs
Temp Pulse Resp BP Pulse Ox
98.3 F 69 18 140/74 100
05/30/24 23:12 05/30/24 23:12 05/30/24 23:12 05/30/24 23:12 05/30/24 23:12
I&O
05/30/24 05/31/24 06/01/24
06:59 06:59 06:59
Intake Total 600 / 600
Balance 600 / 600
[2024-05-31 07:30] VITALS: BP 143/64
[2024-05-31 07:32] LABS: % Basophils 0.6 % (0-2); % Eosinophils 1.5 % (0-6); % Immature Granulocytes 0.4 % (0-0.5); % Lymphocytes 21.8 % (20.5-51.1); % Monocytes 11.8 % (1.7-9.3); % Neutrophils 63.9 % (42.2-75.2); Absolute Eosinophils 0.1 10^3/uL (0-0.7); Absolute Lymphocytes 1.6 10^3/uL (1.2-3.4); Absolute Monocytes 0.9 10^3/uL (0.1-0.6); Absolute Neutrophils 4.6 10^3/uL (1.4-6.5); Hematocrit 38.4 % (37.0-47.0); Hemoglobin 12.4 g/dL (12.0-16.0); Mean Corp Hgb Conc. 32.3 g/dL (33.0-37.0); Mean Corpuscular Hgb 29.5 pg (27.0-31.0); Mean Corpuscular Volume 91.4 fL (81.0-99.0); Mean Platelet Volume 9.4 fL (7.4-10.4); Nucleated Red Blood Cells % 0 %; Platelet Count 184 10^3/uL (130-400); Red Cell Dist. Width 13.6 % (11.5-14.5); White Blood Cell Count 7.2 10^3/uL (4.8-10.8)
[2024-05-31 07:38] LABS: INR 2.38; PT 26.4 Sec (11.4-14.6)
[2024-05-31] MEDS: OSCAL CAL 500 500 MG PO (08:54)
[2024-05-31] MEDS: PROTONIX 20 MG PO (08:54)
[2024-05-31] MEDS: RESTASIS 0.05% OPHTHALMIC EMULSION 1 DROPS BOTH EYES (08:54)
[2024-05-31] MEDS: VITAMIN C 500 MG PO (08:54)
[2024-05-31] MEDS: THERAGRAN 1 TABLET PO (08:54)
[2024-05-31] MEDS: COZAAR 50 MG PO (08:54)
[2024-05-31 09:04] LABS: ALT (SGPT) 24 U/L (0-35); AST (SGOT) 29 U/L (14-36); Albumin 3.6 g/dl (3.5-5.0); Alkaline Phosphatase 66 U/L (38-126); Blood Urea Nitrogen 14 mg/dl (7-17); Carbon Dioxide 28 mmol/L (22-30); Chloride 102 mmol/L (98-107); Direct Bilirubin 0.1 mg/dl (0.0-0.4); Estimated Creatinine Clearance 60 ml/min; Glucose 90 mg/dl (70-99); Potassium 4.3 mmol/L (3.5-5.1); Sodium 139 mmol/L (135-145); Total Protein 5.9 g/dl (6.3-8.2); eGFR > 60.00
[2024-05-31] MEDS: NORVASC 5 MG PO (12:17)
[2024-05-31] MEDS: VITAMIN D3 (cholecalciferol) 25 MCG PO (12:17)
--- NOTE | 2024-05-31 12:38 | W.PN.GI.CBS2 ---
Today's Communication / Plan
-
LRD
OK for DC
Assessment / Plan
-
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
slight upset stomach followed by absence of bowel movements. Then she states that she had a difficulty passing a bowel movement. Followed by a hard bowel movement. She then had slight passage of some scant bright red blood. She then passed a
softer bowel movement with a couple small blood clots. Presented to the emergency room for further evaluation. Last dose of warfarin was yesterday. INR is 2.7, hemoglobin is stable at 12.9. No signs of bleeding since arrival. Only small clots
were noted. Rectal exam in ER without any hematochezia. Stool was positive for occult blood. Patient without any abdominal pain. Last colonoscopy in 08/2022 showing scattered small mouth diverticula in sigmoid colon, descending colon, ascending
colon and cecum. Patient takes her BP three times a day and denies any episodes of hypotension or significant abd pain.
Impression:
Rectal bleeding question secondary to diverticular versus stercoral versus less likely colitis
Chronic anticoagulation, on warfarin given history of bioprosthetic mitral valve and A-fib
Plan:
-No further bleeding and hemoglobin is stable, INR remains therapeutic
-Will advance to low residue diet
-Okay to resume warfarin with close monitoring of INR levels as outpatient
-Also suffers from chronic constipation and does consume a high-fiber diet, I told her to use MiraLAX daily and sennakot PRN
-was having symptoms of dyspepsia continue Protonix for a month and then can use Pepcid as needed
-Follow-up as outpatient if has ongoing symptoms
-
Okay for DC, GI will sign off and will be available as needed
-
Subjective
Subjective
Date of Service: May 31, 2024
No further bleeding hemoglobin remained stable
INR is therapeutic
Objective
Data Reviewed
Laboratory Data:
Laboratory Results
05/31/24 06:27
05/31/24 06:27
Laboratory Results
PT 26.4 Sec (11.4-14.6) H 05/31/24 06:27
INR 2.38 05/31/24 06:27
APTT 51.7 Sec (23.4-35.0) H 05/30/24 10:24
Total Bilirubin 1.0 mg/dl (0.2-1.3) 05/31/24 06:27
AST 29 U/L (14-36) 05/31/24 06:27
ALT 24 U/L (0-35) 05/31/24 06:27
Alkaline Phosphatase 66 U/L (38-126) 05/31/24 06:27
Vital Signs and I&O:
Vital Signs
Temp Pulse Resp BP Pulse Ox
98.1 F 67 18 149/72 98
05/31/24 07:30 05/31/24 12:17 05/31/24 07:30 05/31/24 12:17 05/31/24 11:33
I&O
05/30/24 05/31/24 06/01/24
06:59 06:59 06:59
Intake Total 600 / 600
Balance 600 / 600
Physical Exam
Physical Exam
Cardiology: Normal Sinus Rhythm
Pulmonary: Clear
GI: Soft, Non Distended, Non Tender and Normal Bowel Sounds
[2024-05-31 13:12] VITALS: BP 151/78
--- NOTE | 2024-05-31 14:56 | W.DCSUMMARY ---
Discharge Summary
Discharge Data
Date of Admission: 05/30/24
Date of Discharge: 05/31/24
Total time spent discharging patient (in min): 38
-
Pending Results: No
Hospital Course
74-year-old female with past medical history of diverticulosis, rectal bleeding, paroxysmal atrial fibrillation status post ablation on Coumadin, bioprosthetic mitral valve, CHF, hypertension, stress incontinence and hyperlipidemia, presented with
rectal bleeding. Patient's Coumadin was held and gastroenterology was consulted. Gastroenterology mentioned that patient's rectal bleeding was painless and most likely related to hemorrhoids given that patient was constipated recently with straining
and hard stool and less likely diverticular bleed. Patient was advised to use MiraLAX every day or every other day and patient said she consumes a high-fiber diet and currently using Senokot as needed. Patient's hemoglobin was stable and she was
stable for discharge and okay to resume Coumadin as per gastroenterology.
Discharge Plan
-
Patient Disposition: Home (Routine Discharge)
Discharge Diagnosis/Procedures: # Lower GI bleeding
# History of diverticulosis
# Rectal bleeding question secondary to diverticular versus stercoral versus less likely colitis
# Chronic anticoagulation, on warfarin given history of bioprosthetic mitral valve and A-fib
# Paroxysmal atrial fibrillation
# Bioprosthetic mitral valve
# Chronic constipation
# Dyspepsia Symptoms
# Chronic heart failure
# Essential hypertension
# Stress incontinence
# Hyperlipidemia
Condition: Good
Diet: Low Residue
Specialty Instructions: Weigh Daily- Call MD for wt gain/loss 3 lbs overnight/5 lbs in 1 week
Activity Restrictions/Additional Instructions:
Continue Coumadin with close monitoring of INR outpatient.
Continue Protonix for a month followed by Pepcid as needed for dyspepsia symptoms.
Referrals:
Amirah Bailey MD [Family Provider] - in less than 1 week
Additional Discharge Medication Instructions: Pantoprazole is a new medication.
Polyethylene Glycol 3350 is a new medication.
Sennosides is a new medication.
Prescriptions:
New
pantoprazole 20 mg Tablet,Delayed Release (Dr/Ec)
20 mg PO DAILY 28 Days Qty: 28 0RF
polyethylene glycol 3350 17 gram powder in packet
17 g PO DAILY Qty: 30 1RF
sennosides [Senokot] 8.6 mg tablet
8.6 mg PO DAILY PRN (Reason: Constipation) Qty: 30 1RF
Continued
losartan 50 mg Tablet
50 mg PO DAILY
warfarin 2.5 mg Tablet
3.75 mg PO SUMOTUWETHSA@2100
warfarin 2.5 mg Tablet
2.5 mg PO FR@2100
amlodipine 5 mg Tablet
5 mg PO DAILY@1300
calcium carbonate [Calcium 600] 600 mg calcium (1,500 mg) Tablet
600 mg PO DAILY Qty: 0
atenolol 50 mg Tablet
50 mg PO HS
cyclosporine 0.05 % Dropperette
1 drp BOTH EYES BID
omega [id number]-fish oil [Fish Oil] 1,200 (144-216) mg Capsule
1 cap PO NOON
Prolia 60 mg/mL Syringe
60 mg SC [id number]
Hair, Skin and Nails (biotin) 10,000 mcg Tablet,Chewable
10,000 mcg PO BID@1200,1700
cholecalciferol (vitamin D3) 25 mcg (1,000 unit) Tablet
25 mcg PO NOON
atorvastatin [Lipitor] 10 mg Tablet
10 mg PO HS
therapeutic multivitamin Tablet
1 tab PO DAILY
amlodipine [Norvasc] 2.5 mg Tablet
2.5 mg PO DAILYPRN PRN (Reason: high blood pressure)
ascorbic acid (vitamin C) [Vitamin C] 500 mg Tablet
500 mg PO Q48H
Discharge Orders:
Discharge Patient (As Directed); Ordered 05/31/24
Ordered By: Chaim Anderson
Discharge Date and Time
Discharge Date/Time: 05/31/24 15:43
Print Language: MOHAWK
--- NOTE | 2024-05-31 16:15 | CM ---
Patient discharged to home by Nursing before case management conducted initial assessment and discharge plan
== END 2024-05-31 15:43 | disposition home or self-care (01) | DRG 395 ==
LOC: 4 EAST ACU 13:25
PROVIDERS: Nurse Practitioner; ADMITTING PHYSICIAN Hospitalist; ATTENDING PHYSICIAN Hospitalist; CONSULT PHYSICIAN Internal Medicine Gastroenterology; EMERGENCY PHYSICIAN Student in an Organized Health Care Education/Training Program; FAMILY PHYSICIAN Internal Medicine
DX: K64.9 Unspecified hemorrhoids (principal); K59.00 Constipation, unspecified; I48.0 Paroxysmal atrial fibrillation; I50.9 Heart failure, unspecified; I11.0 Hypertensive heart disease with heart failure; N39.3 Stress incontinence (female) (male); E78.00 Pure hypercholesterolemia, unspecified; Z95.3 Presence of xenogenic heart valve; Z79.01 Long term (current) use of anticoagulants; Z79.899 Other long term (current) drug therapy; K59.09 Other constipation
CPT/HCPCS: 80053; 82248; 85025; 85027; 85610; 85730; 86850; 86900; 86901; 99284